=== PATIENT | female | born 1970 | race Caucasian/White ===

== ENCOUNTER 2021-11-22 23:16 | Emergency (ER) | payer MEDICAID, SELFPAY ==
[2021-11-22 23:17] VITALS: BMI 20.5
[2021-11-22 23:21] VITALS: BP 110/93; PULSE 98; RESP 16; TEMP 37; O2SAT 99
--- NOTE | 2021-11-22 23:21 | W.ED.PSYCHS ---
HPI - Psych General: Chief Complaint: Psychiatric Symptoms Stated Complaint: PARANOID/SCHIZ Time Seen by Provider: 11/22/21 23:17 Source: patient and EMS Mode of arrival: EMS Limitations: no limitations History of Present Illness: 51-year-old female who is here with EMS she states that she has been out of her Wellbutrin Prozac and trazodone last week and she is methamphetamine 2 days ago she been having some anxiety and feels like she needs her meds she has no hallucinations denies any suicidal homicidal ideations has no other complaints at this time. Review of Systems Const: Denies: fever(s), chills, body aches or change in appetite Eyes: Denies: blurry vision or eye discomfort ENMT: Denies: throat pain or dental pain Card: Denies: chest pain Resp: Denies: dyspnea GI: Denies: abdominal pain, nausea, vomiting or diarrhea : Denies: dysuria Musc: Denies: neck pain or back pain Skin/Breast: Denies: rash Neuro: Denies: headache(s) Psych: Reports: anxiety Bright/Lymph: Denies: easy bruising All/Imm: Denies: urticaria Physical Exam Const: COMMON NORMALS: no acute distress, patient oriented x3 and healthy appearing HENMT: COMMON NORMALS: normocephalic and atraumatic HEAD & SCALP: normocephalic and atraumatic Eye: COMMON NORMALS: Equal, round and reactive pupils present and EOMs intact bilaterally PUPIL: Yes Equal, round and reactive pupils present Neck/C-Spine: COMMON NORMALS: full ROM and supple Chest: COMMONS NORMALS: normal inspection of the chest and normal palpation of entire chest wall Resp: COMMON NORMALS: normal respiratory effort, No retractions, No use of accessory muscles and clear to auscultation bilaterally AUSCULTATION: clear to auscultation bilaterally Cardio: COMMON NORMALS: regular rate, regular rhythm and No murmurs present (Cardio) RATE: regular rate RHYTHM: regular rhythm GI: COMMON NORMALS: Normal to inspection, nondistended, normoactive bowel sounds present, Soft to palpation, non-tender and no masses PALPATION: Yes Soft to palpation Extremity: COMMON NORMALS: normal to inspection and full ROM Neuro: COMMON NORMALS: patient oriented x3, moves all extremities and no focal motor deficits Psych: COMMON NORMALS: mental status grossly normal, Normal thought process present and cooperative THOUGHT PROCESS: Normal thought process present Skin: COMMON NORMALS: no rashes or lesions noted and no wounds GENERAL SKIN EXAM: no rashes or lesions noted Course Vital Signs: Vital signs: Vital Signs Temperature 98.6 F 11/22/21 23:21 Pulse Rate 98 11/22/21 23:21 Respiratory Rate 16 11/22/21 23:21 Blood Pressure 110/93 11/22/21 23:21 Pulse Oximetry 99 11/22/21 23:21 Oxygen Delivery Me thod 11/22/21 23:21 MDM - Psych Medical Decision Making With recent methamphetamine abuse and she is ran out of her medicine causing some anxiety she is not psychotic she is not suicidal or homicidal she is able answer all questions appropriately she is requesting med refill we will give her medicine doses here and refill them I feel she stable for discharge at this time she is not a threat to herself or others. Discharge Plan Discharge Patient Disposition: Home Clinical Impression: Encounter for medication refill, Methamphetamine use Condition: Stable Prescriptions: New Wellbutrin SR 150 mg tablet sustained-release 12 hr 150 mg PO BID Qty: 60 0RF Prozac 20 mg capsule 20 mg PO DAILY Qty: 60 0RF trazodone 150 mg tablet 150 mg PO DAILY Qty: 60 0RF Discharge Orders: Discharge ED (Routine); Ordered 11/22/21 Ordered By: Ronnie Espinal Referrals: Ozzie Burrell FNP [Nurse Practitioner] - Discharge Diet: Advance as tolerated Discharge Activity: Resume usual activity Coding Level of Care Code ED Senior Manager [employer] for Zhao Manrique
[2021-11-22] MEDS: buPROPion SR (12 HR) 150 mg Tablet PO (23:30)
[2021-11-22] MEDS: trazodone 150 mg Tablet PO (23:30)
[2021-11-22] MEDS: fluoxetine 20 mg Capsule 40 MG PO (23:30)
== END 2021-11-22 23:39 | disposition home or self-care (01) ==
PROVIDERS: Emergency Provider Emergency Medicine
DX: Z76.0 Encounter for issue of repeat prescription (principal); F15.90 Other stimulant use, unspecified, uncomplicated
CPT/HCPCS: 99283